=== PATIENT | male | born 1935 | race Two or more races ===

== ENCOUNTER → 2024-02-20 | Emergency (ER) | payer OTHER ==
[~2024-02-20] MED LIST: ATORVASTATIN 40 MG TAB ONE; FOLIC ACID 1 MG TABLET ONE; NA CHLORIDE 0.9% 1,000 ML ONE; TENECTEPLASE 50 MG/10 ML VIAL IV ONE
[2024-02-20 19:36] LABS: Absolute Basophils 0.1 K/uL (0-0.5); Absolute Eosinophils 0.2 K/uL (0-0.5); Absolute Lymphocytes (CBC) 1.9 K/uL (0.7-4.9); Absolute Monocytes 0.6 K/uL (0.1-1.3); Absolute Neutrophil 3.6 K/uL (1.8-8.0); Basophils % 0.8 % (0-1.3); Eosinophils % 3.9 % (0-4.4); Hematocrit 34.5 % (39.6-49.0); Hemoglobin 11.7 g/dL (13.6-17.9); Lymphocytes % 29.5 % (15.3-44.8); MCH 31.8 pg (27.0-35.0); MCV 93.8 fL (80-100); MPV 6.9 fL (7.6-11.3); Monocytes % 9.3 % (3.3-12.3); Neutrophils % 56.5 % (41.7-73.7); Platelets 245 thou/uL (152-406); RBC Red Blood Cell Count 3.68 M/uL (4.33-5.43); Red Cell Distribution Width 13.3 % (12.1-15.2)
[2024-02-20 19:41] LABS: PT Prothrombin Time 14.9 SECONDS (9.5-12.5); Protime INR 1.37
--- NOTE | 2024-02-20 19:43 | RAD REPORT ---
EXAM DESCRIPTION: CT - Neck Angio - 02/20/2024 7:30 pm CLINICAL HISTORY: PAIN COMPARISON: No comparisons TECHNIQUE: CT angiography of the neck vessels was performed with MIPs. All CT scans are performed using dose optimization technique as appropriate and may include automated exposure control or mA/KV adjustment according to patient size. FINDINGS: A left aortic arch is identified with normal three vessel configuration of the great vesse ls. No significant flow abnormality is seen of the common carotid bilaterally. No significant right-sided carotid stenosis. Mild soft plaque is seen left carotid bulb resulting in mild stenosis. Normal flow is seen within both vertebral arteries. IMPRESSION: Mild stenosis (estimated less than 50%) based on NASCET criteria noted left carotid bulb . NASCET criteria used. Mild 0-49% stenosis Moderate 50-69% stenosis Severe 70-99% stenosis
--- NOTE | 2024-02-20 19:50 | ER ---
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 The charge nurse has been notified. The jb4 patient has been moved to a treatment area. The patients blood glucose was checked prior to arriving to the hospital and was found to be hyperglycemic. 19:25 Chief complaint: Chief complaint: EMS states: Pt transferred with EMS from CT scan to [facility] the room. Report received from EMS. According to the patient's family members, patient's last known well time was 4:30 pm this afternoon. Pt's family witnessed the patient's left side of his face drooping and noted pt slurring his speech. Pt has notable left sided weakness with a slight drift as well as left sided drooping. Pt vital signs are stable. 19:25 Coronavirus screen: Vaccine status: Patient reports receiving the 2nd dose of the covid kd3 vaccine. Ebola Screen: No symptoms or risks identified at this time. Initial Sepsis Screen: Does the patient meet any 2 criteria? No. Patient's initial sepsis screen is negative. Does the patient have a suspected source of infection? No. Patient's initial sepsis screen is negative. Risk Assessment: Do you want to hurt yourself or someone else? Patient reports no desire to harm self or others. Onset of symptoms was February 20, 2024 at 16:30. 19:25 Method Of Arrival: EMS: [facility] 19:25 Acuity: MAXIMILIANO 2 3 Triage Assessment: 19:28 The onset of the patients symptoms was February 20, 2024 at 16:30. General: Appears in no jb4 apparent distress. comfortable, Behavior is calm, cooperative. Pain: Denies pain. Neuro: Level of Consciousness is awake, alert, obeys commands, Oriented to person, place, situation, Sugar Grinder are equal bilaterally Full function Weakness in left Speech is slurred, Facial droop on left, Pupils are PERRLA, Numbness in left side of head Reports numbness in left side of head. Cardiovascular: Patient's skin is warm and dry. Respiratory: Airway is patent Respiratory effort is even, unlabored, Respiratory pattern is regular, symmetrical. GI: No signs and/or symptoms were reported involving the gastrointestinal system. : No signs and/or symptoms were reported regarding the genitourinary system. Derm: Skin is intact, Skin is pink, warm \T\ dry. Musculoskeletal: Circulation, motion, and sensation intact. Range of motion: intact in all extremities. Stroke Activation: Symtpom onset >3 hours and < 6 hours Physician: Stroke Attending; Name: ; Notified At: ; Arrived At: Physician: Chief Stroke Resident; Name: ; Notified At: ; Arrived At: Physician: Stroke Resident; Name: ; Notified At: ; Arrived At: Physician: ED Attending; Name: Michael; Notified At: 19:07; Arrived At: Physician: ED Resident; Name: ; Notified At: ; Arrived At: Historical: - Allergies: 20:08 No Known Allergies; kd3 - Immunization history:: Adult Immunizations up to date. - Social history:: Smoking status: Patient denies any tobacco usage or history of. - Family history:: not pertinent. Screenin:43 [facility] ED Fall Risk Assessment (Adult) History of falling in the last 3 months, jb4 including since admission No falls in past 3 months (0 pts) Confusion or Disorientation No (0 pts) Intoxicated or Sedated No (0 pts) Impaired Gait No (0 pts) Mobility Assist Device Used No (0 pt) Altered Elimination No (0 pt) Score/Fall Risk Level 0 - 2 = Low Risk Oriented to surroundings, Maintained a safe environment. Abuse screen: Denies threats or abuse. Nutritional screening: No deficits noted. Tuberculosis screening: No symptoms or risk factors identified. Assessment: 19:28 Reassessment: Pt in room. jb4 19:43 General: Appears in no apparent distress. comfortable, Behavior is calm, cooperative, jb4 appropriate for age. Pain: Denies pain. Neuro: Level of Consciousness is awake, alert, obeys commands, Oriented to person, place, time, situation, Sugar Grinder are equal bilaterally Full function Weakness in left arm(s) Speech is slurred, Facial droop on left, Pupils are PERRLA, Numbness in left side of head Reports numbness in left side of head. Cardiovascular: Patient's skin is warm and dry. Respiratory: Airway is patent Respiratory effort is even, unlabored, Respiratory pattern is regular, symmetrical. GI: No signs and/or symptoms were reported involving the gastrointestinal system. : No signs and/or symptoms were reported regarding the genitourinary system. EENT: No signs and/or symptoms were reported regarding the EENT system. Derm: Skin is intact, Skin is pink, warm \T\ dry. Musculoskeletal: Circulation, motion, and sensation intact. Range of motion: intact in all extremities. 19:50 VAN Scoring: Arm Drift: Minor drift Visual Disturbance: No visual disturbance noted. jb4 [place] Swallow Protocol Brief Cognitive Screen What is your name? Normal, Where are you right now? Normal, What year is it? Normal. Oral Mechanism Examination Facial Symmetry: Normal, Motion: Normal, Lip Closure: Normal, Oral Mechanism Result: Normal. 3 oz Water Swallow Challenge: Pt able to drink all water without stopping, coughing, choking or throat clearing: Result: MILTON MD Notified: Yadiel Rodriguez MD. TNKase (Tenecteplase) Screening: Indications: Definite evidence of stroke, ischemic, embolic, or hypertensive: Yes. 20:23 Reassessment: Dr. Rodriguez At the bedside. jb4 21:00 Reassessment: Patient appears in no apparent distress at this time. Patient and/or jb4 family updated on plan of care and expected duration. Pain level reassessed. Patient is alert, oriented x 3, equal unlabored respirations, skin warm/dry/pink. Vital Signs: 19:30 Weight 68.49 kg (M); jb4 19:32 BP 123 / 86; Pulse 80; Resp 17; Temp 98.2(O); Pulse Ox 96% on R/A; kd3 19:45 BP 129 / 89; Pulse 84; Resp 18; Pulse Ox 96% on R/A; kd3 20:30 BP 135 / 83; Pulse 80; Resp 16; Pulse Ox 95% on R/A; jb4 [place] Coma Score: 20:02 Eye Response: spontaneous(4). Motor Response: obeys commands(6). Verbal Response: glory oriented(5). Total: 15. NIH Stroke Scale Scores: 20:00 NIHSS Score: 4 jb4 20:02 NIHSS Score: 5 glory 20:39 NIHSS Score: 6 kd3 ED Course: 19:15 Patient arrived in ED. glory 19:15 Yadiel Rodriguez MD is Attending Physician. glory 19:28 Initial lab(s) drawn, by me, sent to lab. kd3 19:29 Initiated transfer with Adam at [facility]. rv1 19:32 CT Head Angio In Process Unspecified. EDMS 19:32 CT Neck Angio In Process Unspecified. EDMS 19:33 Inserted saline lock: 20 gauge in left antecubital area, using aseptic technique. kd3 19:34 Maintain EMS IV. Dressing intact. Good blood return noted. Site clean \T\ dry. Gauge \T\ kd 3 site: 18 gauge right A/C. 19:36 EKG done, by ortho tech. kd3 19:43 Patient has correct armband on for positive identification. Bed in low position. Call jb4 light in reach. Side rails up X 1. Provided Education on: need for transfer. 19:46 CT Stroke Brain w/o Contrast In Process Unspecified. EDMS 19:[address] Lloyd to [facility] [address] [id number] Rm 3. rv1 20:08 Triage completed. kd3 20:08 Arm band placed on right wrist. kd3 20:17 Mario Ramirez, RN is Primary Nurse. jb4 20:20 XRAY Chest (1 view) In Process Unspecified. EDMS 20:50 Patient transferred, IV remains in place. jb4 20:50 No provider procedures requiring assistance completed. jb4 Administered Medications: 19:43 Drug: TNK FOR STROKE - Tenecteplase IV 0.25 mg/kg IV at per protocol once; MAX jb4 DOSE 25 mg, IVP over 5 seconds {Co-Signature: kd3 (Katy Griffiths RN).} Route: IV; Rate: per protocol; Site: right antecubital; 20:01 Drug: NS 0.9% IV 1000 ml IV at 1 bolus Per protocol; 1000 mL bolus Route: IV; Rate: 1 jb4 bolus; Site: right antecubital; 20:06 Drug: foLIC Acid PO 2 mg PO once Route: PO; jb4 20:07 Not Given (Other Intervention Used): folic acid1 mg IVPB once jb4 20:44 Drug: Atorvastatin PO 40 mg PO once Route: PO; jb4 20:44 Drug: NS 0.9% IV 1000 ml IV at 125 ml/hr continuous Route: IV; Rate: 125 ml/hr; Site: [facility] right antecubital; Medication: 21:00 VIS not applicable for this client. jb4 Point of Care Testing: Blood Glucose: 19:28 Blood Glucose: 133 mg/dL; 4 Ranges: Outcome: 19:49 ER care complete, transfer ordered by . glory 20:50 Transferred by ground EMS to [facility], Transfer form completed. jb4 X-rays sent w/ patient. 20:50 Condition: stable 20:50 Discharge instructions given to patient, family, Instructed on the need for transfer, Demonstrated understanding of instructions, 21:01 Patient left the ED. 4 NIH Stroke Scale - NIH Stroke Score Date: 02/20/2024 Time: 20:00 Total Score = 4 10. Dysarthria (speech clarity - read or repeat words) - 1(Mild to Moderate) 11. Extinction and Inattention (visual/tactile/auditory/spatial/personal) - 0(No abnormality) 1a. Level of Consciousness (LOC) - 0(Alert) 1b. Level of Consciousness (LOC) (Month \T\ Age) - 0(Both) 1c. LOC Commands (Open \T\ Closes Eyes/Form Builder Helper) - 0(Both) 2. Best Gaze (Lateral Gaze Paresis) - 0(Normal) 3. Visual Field Loss - 0(No visual loss) 4. Facial Palsy - 1(Minor Paralysis) 5a. Left Arm: Motor (10-second hold) - 1(Drift) 5b. Right Arm: Motor (10-second hold) - 0(No drift) 6a. Left Leg: Motor (5-second hold - always test supine) - 0(No drift) 6b. Right Leg: Motor (5-second hold - always test supine) - 0(No drift) 7. Limb Ataxia (finger/nose \T\ heel/harrington - test with eyes open) - 0(Absent) 8. Sensory Loss (pinprick arms/legs/face) - 1(Mild to moderate loss) 9. Best Language: Aphasia (description/naming/reading) - 0(No aphasia) Initials: jb4 NIH Stroke Scale - NIH Stroke Score Date: 02/20/2024 Time: 20:02 Total Score = 5 10. Dysarthria (speech clarity - read or repeat words) - 0(Normal) 11. Extinction and Inattention (visual/tactile/auditory/spatial/personal) - 0(No abnormality) 1a. Level of Consciousness (LOC) - 0(Alert) 1b. Level of Consciousness (LOC) (Month \T\ Age) - 0(Both) 1c. LOC Commands (Open \T\ Closes Eyes/Form Builder Helper) - 0(Both) 2. Best Gaze (Lateral Gaze Paresis) - 0(Normal) 3. Visual Field Loss - 0(No visual loss) 4. Facial Palsy - 2(Partial paralysis) 5a. Left Arm: Motor (10-second hold) - 1(Drift) 5b. Right Arm: Motor (10-second hold) - 0(No drift) 6a. Left Leg: Motor (5-second hold - always test supine) - 1(Drift) 6b. Right Leg: Motor (5-second hold - always test supine) - 0(No drift) 7. Limb Ataxia (finger/nose \T\ heel/harrington - test with eyes open) - 1(Present in one limb) 8. Sensory Loss (pinprick arms/legs/face) - 0(Normal) 9. Best Language: Aphasia (description/naming/reading) - 0(No aphasia) Initials: [facility] NIH Stroke Scale - NIH Stroke Score Date: 02/20/2024 Time: 20:39 Total Score = 6 10. Dysarthria (speech clarity - read or repeat words) - 1(Mild to Moderate) 11. Extinction and Inattention (visual/tactile/auditory/spatial/personal) - 0(No abnormality) 1a. Level of Consciousness (LOC) - 0(Alert) 1b. Level of Consciousness (LOC) (Month \T\ Age) - 0(Both) 1c. LOC Commands (Open \T\ Closes Eyes/Form Builder Helper) - 0(Both) 2. Best Gaze (Lateral Gaze Paresis) - 0(Normal) 3. Visual Field Loss - 0(No visual loss) 4. Facial Palsy - 1(Minor Paralysis) 5a. Left Arm: Motor (10-second hold) - 1(Drift) 5b. Right Arm: Motor (10-second hold) - 0(No drift) 6a. Left Leg: Motor (5-second hold - always test supine) - 1(Drift) 6b. Right Leg: Motor (5-second hold - always test supine) - 0(No drift) 7. Limb Ataxia (finger/nose \T\ heel/harrington - test with eyes open) - 1(Present in one limb) 8. Sensory Loss (pinprick arms/legs/face) - 1(Mild to moderate loss) 9. Best Language: Aphasia (description/naming/reading) - 0(No aphasia) Initials: kd3 Signatures: Dispatcher [employer] EDYadiel Mace MD MD cha Bryson, James RN RN jb4 Katy Griffiths, RN RN kd3 Esli Castañeda rv1 Katy Griffiths RN kd3 Corrections: (The following items were deleted from the chart) 20:37 19:50 NIHSS Score: 4 4 [facility] 20:40 19:40 NIHSS Score: 2 kd3 kd3 20:40 19:48 NIHSS Score: 4 kd3 kd3 20:40 19:52 NIHSS Score: 6 kd3 kd3 20:41 19:32 BP 123 / 86; Pulse 80bpm; Resp 17bpm; Pulse Ox 96% RA; kd3 kd3 21:01 19:43 No provider procedures requiring assistance completed. [facility] jb 21:01 19:43 Patient transferred, IV remains in place. jb4 jb4
--- NOTE | 2024-02-20 19:50 | EDPHYS ---
Physician Documentation [facility] Name: Xin Catherine Age: 88 yrs Sex: Male : 1935 Arrival Date: 02/20/2024 Time: 19:14 Bed 19 Private MD: ED Physician Yadiel Rodriguez HPI: 02/19 19:43 This 88 yrs old [place] Male presents to ER via Unassigned with complaints of LEFT glory SIDED WEAKNESS. 19:43 The patient's problem is reported as a facial droop, on left, weakness, in the left glory upper extremity, in the left lower extremity, in the left side of face. Onset: The symptoms/episode began/occurred at 16:30. Duration: This was a single incident, The episode is continuous. Context: the episode(s) was witnessed, by family. The symptoms are alleviated by nothing. The symptoms are aggravated by standing, walking. Associated signs and symptoms: The patient has no apparent associated signs or symptoms. Severity of symptoms: At their worst the symptoms were moderate in the emergency department the symptoms are unchanged. Patient's baseline: Neuro: alert and fully oriented. The patient has not experienced similar symptoms in the past. Historical: - Allergies: 20:08 No Known Allergies; kd3 - Immunization history:: Adult Immunizations up to date. - Social history:: Smoking status: Patient denies any tobacco usage or history of. - Family history:: not pertinent. ROS: 19:43 Constitutional: Negative for fever, chills, and weight loss, Eyes: Negative for injury, glory pain, redness, and discharge, ENT: Negative for injury, pain, and discharge, Neck: Negative for injury, pain, and swelling, Cardiovascular: Negative for chest pain, palpitations, and edema, Respiratory: Negative for shortness of breath, cough, wheezing, and pleuritic chest pain, Abdomen/GI: Negative for abdominal pain, nausea, vomiting, diarrhea, and constipation, Back: Negative for injury and pain, : Negative for injury, bleeding, discharge, and swelling, Skin: Negative for injury, rash, and discoloration, Psych: Negative for depression, anxiety, suicide ideation, homicidal ideation, and hallucinations, Allergy/Immunology: Negative for hives, rash, and allergies, Endocrine: Negative for neck swelling, polydipsia, polyuria, polyphagia, and marked weight changes, Hematologic/Lymphatic: Negative for swollen nodes, abnormal bleeding, and unusual bruising, 19:43 MS/extremity: Positive for WEAKNESS LEFT ARM, LEG AND LEFT LOWER FACE, Exam: 19:46 Radiologist reports: NEG PER RIYA holder 19:46 Constitutional: This is a well developed, well nourished patient who is awake, alert, and in no acute distress. Head/Face: Normocephalic, atraumatic. Eyes: Pupils equal round and reactive to light, extra-ocular motions intact. Lids and lashes normal. Conjunctiva and sclera are non-icteric and not injected. Cornea within normal limits. Periorbital areas with no swelling, redness, or edema. ENT: Nares patent. No nasal discharge, no septal abnormalities noted. Tympanic membranes are normal and external auditory canals are clear. Oropharynx with no redness, swelling, or masses, exudates, or evidence of obstruction, uvula midline. Mucous membranes moist. Neck: Trachea midline, no thyromegaly or masses palpated, and no cervical lymphadenopathy. Supple, full range of motion without nuchal rigidity, or vertebral point tenderness. No Meningismus. Chest/axilla: Normal chest wall appearance and motion. Nontender with no deformity. No lesions are appreciated. Cardiovascular: Regular rate and rhythm with a normal S1 and S2. No gallops, murmurs, or rubs. Normal PMI, no JVD. No pulse deficits. Respiratory: Lungs have equal breath sounds bilaterally, clear to auscultation and percussion. No rales, rhonchi or wheezes noted. No increased work of breathing, no retractions or nasal flaring. Abdomen/GI: Soft, non-tender, with normal bowel sounds. No distension or tympany. No guarding or rebound. No evidence of tenderness throughout. Back: No spinal tenderness. No costovertebral tenderness. Full range of motion. Male : Normal genitalia with no discharge or lesions. Skin: Warm, dry with normal turgor. Normal color with no rashes, no lesions, and no evidence of cellulitis. MS/ Extremity: Pulses equal, no cyanosis. Neurovascular intact. Full, normal range of motion. Psych: Awake, alert, with orientation to person, place and time. Behavior, mood, and affect are within normal limits. 19:46 ECG was reviewed by the Attending Physician. 19:46 Neuro: Orientation: is normal, appropriate for stated age, no acute changes, Mentation: is normal, appropriate for stated age, no acute changes, responsive to voice Memory: is normal, appropriate for stated age, no acute changes, Cranial nerves: facial droop noted on left, with forehead spared. Cerebellar function: is grossly normal, Motor: moves all fours, strength is 4/5 in the left arm and left leg, Sensation: is normal, no obvious gross deficits, appropriate no acute changes, Gait: not tested. Deep tendon reflexes are 2+ (normal) in the bilateral brachioradialis, bicep, tricep and patellar and Achilles tendons, Babinski testing is normal, seizure activity, is not displayed by the patient, Vital Signs: 19:30 Weight 68.49 kg (M); jb4 19:32 BP 123 / 86; Pulse 80; Resp 17; Temp 98.2(O); Pulse Ox 96% on R/A; kd3 19:45 BP 129 / 89; Pulse 84; Resp 18; Pulse Ox 96% on R/A; kd3 20:30 BP 135 / 83; Pulse 80; Resp 16; Pulse Ox 95% on R/A; jb4 NIH Stroke Scale Scores: 20:00 NIHSS Score: 4 jb4 20:02 NIHSS Score: 5 [facility] 20:39 NIHSS Score: 6 kd3 Yuri Coma Score: 20:02 Eye Response: spontaneous(4). Motor Response: obeys commands(6). Verbal Response: glory oriented(5). Total: 15. MDM: 19:15 Patient medically screened. [facility] 19:52 Differential diagnosis: CVA, TIA, metabolic disorder. Data reviewed: vital signs, [facility] nurses notes, EMS record, lab test result(s), EKG, radiologic studies, CT scan, plain films. Consideration of Admission/Observation Escalation of care including admission/observation considered. I considered the following discharge prescriptions or medication management in the emergency department Medications were administered in the Emergency Department. See JAN. Test considered but Not performed: MRI: MRI NOT AVALIABLE. 20:10 Independent interpretation of the following test(s) in the Emergency Department EKG: glory See my EKG interpretation above. 20:10 Discussion of test interpretation with radiology: I had a discussion with radiology [facility] regarding a test interpretation. DR RITTERDR DUNN. Historians other than the Patient: Spouse/Significant Other: SON , WELL INFORMED. Care significantly affected by the following chronic conditions: NEUROPATHY. Counseling: I had a detailed discussion with the patient and/or guardian regarding the historical points, exam findings, and any diagnostic results supporting the discharge/admit diagnosis, lab results, radiology results, the need to transfer to another facility, for higher level of care, [facility] does not immediately have the required specialist. 02/19 19:17 Order name: Basic Metabolic Panel; Complete Time: 20:26 [facility] 02/19 19:17 Order name: CBC with Diff; Complete Time: 19:40 [facility] 02/19 19:17 Order name: LFT's; Complete Time: 20:02/19 19:17 Order name: Magnesium; Complete Time: 20: [facility] 02/19 19:17 Order name: NT PRO-BNP; Complete Time: 20:26 [facility] 02/19 19:17 Order name: PT-INR; Complete Time: 20: [facility] 02/19 19:17 Order name: Troponin HS; Complete Time: 20:26 [facility] 02/19 19:17 Order name: Urinalysis w/ reflexes [facility] 02/19 19:40 Order name: Glucose, Ancillary Testing; Complete Time: 19:40 EDMS 02/19 19:45 Order name: Carbamazepine (tegretol); Complete Time: 20:26 rv1 02/19 19:17 Order name: XRAY Chest (1 view); Complete Time: 20:44 [facility] 02/19 19:17 Order name: CT Stroke Brain w/o Contrast; Complete Time: 20: [facility] 02/19 19:17 Order name: CT Head Angio; Complete Time: 20: [facility] 02/19 19:17 Order name: CT Neck Angio; Complete Time: 20:07 [facility] 02/19 19:17 Order name: EKG; Complete Time: 19:18 [facility] 02/19 19:17 Order name: Cardiac monitoring; Complete Time: 20:02/19 19:17 Order name: EKG - Nurse/Tech; Complete Time: 20: [facility] 02/19 19:17 Order name: IV Saline Lock; Complete Time: 20: [facility] 02/19 19:17 Order name: Labs collected and sent; Complete Time: 20:02/19 19:17 Order name: O2 Per Protocol; Complete Time: 20: glory 02/19 19:17 Order name: O2 Sat Monitoring; Complete Time: 20: glory EC:46 Rate is 86 beats/min. Rhythm is regular. QRS [place] is Normal. [place] interval is normal. QRS glory interval is normal. QT interval is normal. No Q waves. T waves are Normal. No ST changes noted. Clinical impression: NSR w/ Non-specific ST/T Changes and No evidence of ischemia. Interpreted by me. Reviewed by me. Administered Medications: 19:43 Drug: TNK FOR STROKE - Tenecteplase IV 0.25 mg/kg IV at per protocol once; MAX jb4 DOSE 25 mg, IVP over 5 seconds {Co-Signature: kd3 (Katy Griffiths RN).} Route: IV; Rate: per protocol; Site: right antecubital; 20:01 Drug: NS 0.9% IV 1000 ml IV at 1 bolus Per protocol; 1000 mL bolus Route: IV; Rate: 1 jb4 bolus; Site: right antecubital; 20:06 Drug: foLIC Acid PO 2 mg PO once Route: PO; jb4 20:07 Not Given (Other Intervention Used): folic acid1 mg IVPB once jb4 20:44 Drug: Atorvastatin PO 40 mg PO once Route: PO; jb4 20:44 Drug: NS 0.9% IV 1000 ml IV at 125 ml/hr continuous Route: IV; Rate: 125 ml/hr; Site: jb right antecubital; Point of Care Testing: Blood Glucose: 19:28 Blood Glucose: 133 mg/dL; jb4 Ranges: Critical Glucose Levels:Adult <50 mg/dl or >400 mg/dl <40 mg/dl or >180 mg/dl Disposition Summary: 02/20/24 19:49 Transfer Ordered Notes: Transfer Location: 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 Total time: 45 minutes NIH Stroke Scale - NIH Stroke Score Date: 02/20/2024 Time: 20:00 Total Score = 4 10. Dysarthria (speech clarity - read or repeat words) - 1(Mild to Moderate) 11. Extinction and Inattention (visual/tactile/auditory/spatial/personal) - 0(No abnormality) 1a. Level of Consciousness (LOC) - 0(Alert) 1b. Level of Consciousness (LOC) (Month \T\ Age) - 0(Both) 1c. LOC Commands (Open \T\ Closes Eyes/Foreign Exchange Student Coordinator) - 0(Both) 2. Best Gaze (Lateral Gaze Paresis) - 0(Normal) 3. Visual Field Loss - 0(No visual loss) 4. Facial Palsy - 1(Minor Paralysis) 5a. Left Arm: Motor (10-second hold) - 1(Drift) 5b. Right Arm: Motor (10-second hold) - 0(No drift) 6a. Left Leg: Motor (5-second hold - always test supine) - 0(No drift) 6b. Right Leg: Motor (5-second hold - always test supine) - 0(No drift) 7. Limb Ataxia (finger/nose \T\ heel/har[place] - test with eyes open) - 0(Absent) 8. Sensory Loss (pinprick arms/legs/face) - 1(Mild to moderate loss) 9. Best Language: Aphasia (description/naming/reading) - 0(No aphasia) Initials: jb4 NIH Stroke Scale - NIH Stroke Score Date: 02/20/2024 Time: 20:02 Total Score = 5 10. Dysarthria (speech clarity - read or repeat words) - 0(Normal) 11. Extinction and Inattention (visual/tactile/auditory/spatial/personal) - 0(No abnormality) 1a. Level of Consciousness (LOC) - 0(Alert) 1b. Level of Consciousness (LOC) (Month \T\ Age) - 0(Both) 1c. LOC Commands (Open \T\ Closes Eyes/Foreign Exchange Student Coordinator) - 0(Both) 2. Best Gaze (Lateral Gaze Paresis) - 0(Normal) 3. Visual Field Loss - 0(No visual loss) 4. Facial Palsy - 2(Partial paralysis) 5a. Left Arm: Motor (10-second hold) - 1(Drift) 5b. Right Arm: Motor (10-second hold) - 0(No drift) 6a. Left Leg: Motor (5-second hold - always test supine) - 1(Drift) 6b. Right Leg: Motor (5-second hold - always test supine) - 0(No drift) 7. Limb Ataxia (finger/nose \T\ heel/har[place] - test with eyes open) - 1(Present in one limb) 8. Sensory Loss (pinprick arms/legs/face) - 0(Normal) 9. Best Language: Aphasia (description/naming/reading) - 0(No aphasia) Initials: glory NIH Stroke Scale - NIH Stroke Score Date: 02/20/2024 Time: 20:39 Total Score = 6 10. Dysarthria (speech clarity - read or repeat words) - 1(Mild to Moderate) 11. Extinction and Inattention (visual/tactile/auditory/spatial/personal) - 0(No abnormality) 1a. Level of Consciousness (LOC) - 0(Alert) 1b. Level of Consciousness (LOC) (Month \T\ Age) - 0(Both) 1c. LOC Commands (Open \T\ Closes Eyes/Foreign Exchange Student Coordinator) - 0(Both) 2. Best Gaze (Lateral Gaze Paresis) - 0(Normal) 3. Visual Field Loss - 0(No visual loss) 4. Facial Palsy - 1(Minor Paralysis) 5a. Left Arm: Motor (10-second hold) - 1(Drift) 5b. Right Arm: Motor (10-second hold) - 0(No drift) 6a. Left Leg: Motor (5-second hold - always test supine) - 1(Drift) 6b. Right Leg: Motor (5-second hold - always test supine) - 0(No drift) 7. Limb Ataxia (finger/nose \T\ heel/har[place] - test with eyes open) - 1(Present in one limb) 8. Sensory Loss (pinprick arms/legs/face) - 1(Mild to moderate loss) 9. Best Language: Aphasia (description/naming/reading) - 0(No aphasia) Initials: kd3 Signatures: Dispatcher [employer] EDYadiel Mace MD MD cha Bryson, James RN RN jb4 Katy Griffiths RN RN kd3 Katy Griffiths RN kd3 Corrections: (The following items were deleted from the chart) 20:12 19:49 NICU SL , [facility] glory 20:44 20:12 NICU SL , [facility] glory 21:01 20:44 [facility] SL , [facility] jb4
--- NOTE | 2024-02-20 19:52 | RAD REPORT ---
EXAM DESCRIPTION: CT - Ct Stroke Brain Wo Cont - 02/20/2024 7:44 pm CLINICAL HISTORY: STROKE ALERT Headache, drowsiness COMPARISON: No comparisons TECHNIQUE: All CT scans are performed using dose optimization technique as appropriate and may inclu de automated exposure control or mA/KV adjustment according to patient size. FINDINGS: No intracranial hemorrhage, hydrocephalus or extra-axial fluid collection.Moderate general ized brain atrophy is present with mild periventricular and deep white matter chronic microvascular i schemic changes.No areas of brain edema or evidence of midline shift. The paranasal sinuses and mastoids are clear. The calvarium is intact. IMPRESSION: No acute intracranial abnormality. The findings were discussed with doctor Rodriguez in the ER on 02/20/2024 at 7:13 p.m. by telephone.
--- NOTE | 2024-02-20 19:53 | RAD REPORT ---
EXAM DESCRIPTION: CT - Head angio - 02/20/2024 7:45 pm CLINICAL HISTORY: TIA Headache, drowsiness COMPARISON: Ct Stroke Brain Wo Cont dated 02/20/2024 TECHNIQUE: CT angiography of the head was performed with MIPs. All CT scans are performed using dose optimization technique as appropriate and may include automated exposure control or mA/KV adjustment according to patient size. FINDINGS: No evidence of large vessel occlusion. No evidence of aneurysm is detected. No flow-limiti ng stenosis or vascular malformation identified. Antegrade flow is seen in the vertebral arteries. The vertebral arteries are codominant. The visualized dural venous sinuses are patent. IMPRESSION: No significant flow abnormality is detected.
[2024-02-20 19:56] LABS: ALT/SGPT 14 U/L (16-61); AST/SGOT 10 U/L (15-37); Albumin/Globulin Ratio 0.9 (1.1-1.8); Alkaline Phosphatase 49 U/L (45-117); Anion Gap 8.7 mEq/L (5.0-15.0); BUN Blood Urea Nitrogen 21 mg/dL (7-18); Bicarbonate 27 mEq/L (21-32); Bilirubin Total 0.2 mg/dL (0.2-1.0); Globulin 3.4 g/dL (2.3-3.5); Glomerular Filtration Rate 48 ml/min (=/>90); Glucose Level 134 mg/dL (74-106); Magnesium 1.9 mg/dL (1.6-2.4); NT PRO-BNP 58 pg/mL (<450); Potassium 3.7 mEq/L (3.5-5.1); Protein, Total 6.4 g/dL (6.4-8.2); Sodium Level 139 mEq/L (136-145); Troponin High Sensitivity 7.8 pg/mL (<58.9)
[2024-02-20 20:09] LABS: Bilirubin Direct < 0.1 mg/dL (0-0.2); Bilirubin Indirect, Calculated ND mg/dL (0.2-0.8)
--- NOTE | 2024-02-20 20:26 | RAD REPORT ---
EXAM DESCRIPTION: RAD - Chest Single View - 02/20/2024 8:19 pm CLINICAL HISTORY: COUGH Chest pain. COMPARISON: No comparisons FINDINGS: Portable technique limits examination quality. The lungs are grossly clear. The heart is normal in size. No displaced fractures. IMPRESSION: No acute intrathoracic process suspected.
[2024-02-20 21:34] VITALS: BP 135/83; TEMP 98.2; O2SAT 95
[2024-02-20 22:26] LABS: Urine Bilirubin NEGATIVE (Negative); Urine Blood Negative (Negative); Urine Clarity Clear (Clear); Urine Color Colorless (Yellow); Urine Glucose NEGATIVE (Negative); Urine Ketones NEGATIVE (Negative); Urine Microscopic Reflex YN NO UMIC; Urine Nitrite NEGATIVE (Negative); Urine Protein NEGATIVE (Negative); Urine Urobilinogen Normal (Normal); Urine pH 6.5 (5.0-7.0)
[2024-02-20 22:27] LABS: Specific Gravity > 1.030 (1.005-1.030)
--- NOTE | 2024-02-23 14:23 | EKG ---
Test Date: 2024-02-20 Test Time: 18:35:49 Billiard Table Repairer: [id number] MEASUREMENT RESULTS: Intervals: Rate: 86 NV: 176 QRSD: 86 QT: 390 QTc: 466 [place]: P: 42 NV: 176 QRS: -31 T: 61 INTERPRETIVE STATEMENTS: Normal sinus rhythm Left axis deviation Abnormal ECG No previous ECG available for comparison Electronically Signed On 02-23-24 14:15:44 CDT by Talha Arenas
== END ==
LOC: ER 19:14
DX: I63.9 Cerebral infarction, unspecified (principal); G81.94 Hemiplegia, unspecified affecting left nondominant side; R29.706 NIHSS score 6; I65.22 Occlusion and stenosis of left carotid artery; N19 Unspecified kidney failure
CPT/HCPCS: 92977; 93005; 85025; 80048; 36415; 83735; 80156; 85610; 82565; 82947; 80076; 81003; 84484; 83880; 70496; 70498; 70450; 71045; 96374; 99285; Q9967; J3101; J7030 ×2

== ENCOUNTER 2024-02-24 12:37 | Inpatient (IN) | payer OTHER ==
[2024-02-24] MEDS ORDERED: ACETAMINOPHEN 325 MG TABLET PO PRN (16:47)
[2024-02-24] MEDS: ENOXAPARIN 40 MG/0.4 ML SQ SCH (17:48)
[2024-02-24] MEDS ORDERED: APIXABAN 2.5 MG TABLET PO SCH (20:00)
[2024-02-24] MEDS: ALBUTEROL 2.5 MG/3 ML NEB SOL NEB SCH (20:12)
[2024-02-24] MEDS: IPRATROPIUM BROM 0.5MG/2.5ML NEB SCH (20:12)
[2024-02-24] MEDS: BUDESONIDE 0.5 MG/2 ML NEB NEB SCH (20:45)
[2024-02-24] MEDS ORDERED: BUDESONIDE 0.25 MG/2 ML NEB ONE (20:58)
[2024-02-24] MEDS: MELATONIN 3 MG TABLET PO SCH (21:00)
[2024-02-24] MEDS: DOCUSATE NA/SENNA CONC 1 TAB PO SCH (21:00)
[2024-02-25 04:06] LABS: Absolute Basophils 0.1 K/uL (0-0.5); Absolute Lymphocytes (CBC) 1.4 K/uL (0.7-4.9); Absolute Monocytes 1.4 K/uL (0.1-1.3); Absolute Neutrophil 16.3 K/uL (1.8-8.0); Basophils % 0.4 % (0-1.3); Eosinophils % 0.1 % (0-4.4); Hematocrit 38.8 % (39.6-49.0); Hemoglobin 12.9 g/dL (13.6-17.9); Lymphocytes % 7.2 % (15.3-44.8); MCH 30.9 pg (27.0-35.0); MCHC 33.2 g/dL (32.0-36.0); MCV 93.3 fL (80-100); MPV 7.5 fL (7.6-11.3); Monocytes % 7.3 % (3.3-12.3); Platelets 259 thou/uL (152-406); RBC Red Blood Cell Count 4.16 M/uL (4.33-5.43); Red Cell Distribution Width 13.4 % (12.1-15.2)
[2024-02-25 04:18] LABS: Albumin 3.2 g/dL (3.4-5.0); Prealbumin 17.2 mg/dL (20-40)
[2024-02-25 05:53] LABS: Specific Gravity 1.028 (1.005-1.030); Sqamous Epithelial None Seen /HPF (None Seen); Urine Bacteria <20 /HPF (<20); Urine Bilirubin NEGATIVE (Negative); Urine Blood 1+ (Negative); Urine Clarity Turbid (Clear); Urine Color Yellow (Yellow); Urine Culture Reflex Order REFLEXED; Urine Glucose NEGATIVE (Negative); Urine Ketones NEGATIVE (Negative); Urine Microscopic Reflex YN ORDER UMIC; Urine Mucus Slight /HPF (None Seen); Urine Nitrite NEGATIVE (Negative); Urine Protein 1+ (Negative); Urine Urobilinogen Normal (Normal); Urine WBC 20-50 /HPF (<5)
--- NOTE | 2024-02-25 06:32 | HP ---
Date of Admission: 02/24/2024 Time Of Service: 6:30 p.m. Chief Complaint: "I had a stroke and my left side is weak." History Of Present Illness: Mr. Catherine is an 88-year-old patient with dementia, peripheral neuropat hy, who was very active, able to walk at least 3 miles daily for exercise, who can cook, clean, and t gege care of his . The patient and his were visiting from [place] and while visiting family not iced more confusion with left-sided weakness, facial droop, and numbness onset on the February 19. He was seen at [facility] and his NIH Stroke Scale was 6. His CT scan was negative for any acute ischemic hemorrhagic findings and as a result him being within the window for TNKs, he did rec eive TNKs. CT angiogram of the head and neck showed no large vessel occlusion. There was less than 50% stenosis of left carotid bulb. Following TNKs, which is the intravenous thrombolysis, he was tra nsferred to [facility] for monitoring higher level of care. The patient was tr eated with atorvastatin for dyslipidemia, and carbamazepine for trigeminal neuralgia and had mild del irium while in ICU in [place]. Also found to have acute renal insufficiency, which did resolve after 2 days. He was treated with senna and MiraLAX for significant constipation and Flomax for benign pr ostatic hypertrophy. The patient's deficits consisted of dysarthria, dysphasia with left-sided arm, leg, and face weakness, and some confusion with agitation. It is also noted that he had difficulty w ith the ability to urinate and was diagnosed with urinary retention. Furthermore, he had an acute on chronic metabolic encephalopathy. His white blood cell count did elevate overnight from 8.3 to 13.6 on the . Chest x-ray revealed a pneumonia, likely aspiration, and he was treated with levofloxa chandler. As a result of his complex condition and deficits due to stroke, the patient is requiring signi ficant assistance with ordinary activities. He was evaluated by therapy service and found to be at a supervision level for bed mobility, contact guard for transfer, moderate assistance for ambulation 1 00 feet with a rolling walker and for donning and doffing socks and for his toileting and for his cog nitive functioning. As a result, he is determined to be an appropriate candidate for inpatient rehab ilitation where his medical issues may be managed and he received physical therapy at the same time. Past Medical History: As noted above including the prostate hypertrophy, pneumonia, constipation, ne uralgia, dyslipidemia, of course his recent stroke. Allergies: NO KNOWN DRUG ALLERGIES. Current Medications: Flomax 0.4 mg at night, Senokot-S 2 at bedtime, melatonin 6 mg at bedtime, levo floxacin 750 mg daily, Atrovent 0.5 mg nebulizer every 6 hours, Lovenox 40 mg subcutaneously daily, T egretol 200 mg daily, Pulmicort 0.5 mg twice daily, Lipitor 80 mg at bedtime, aspirin 81 mg daily, al buterol nebulizer 2.5 mg every 6 hours as needed, Tylenol 650 mg every 6 hours as needed. X-ray/imaging: Chest x-ray from 02/24/2024, showed hazy interstitial thickening without focal pneumo leonardo. There is an atypical infection may be considered. MRI of the brain without contrast on 01/2023 , showed right paramedian small acute infarct. There was involutional minimal chronic microvascular ischemic changes identified. Family History: Noncontributory. Social History: No alcohol, tobacco, or IV drug use. The patient is from [place]. Review of Systems: Aside from mentioned, some difficulty in swallowing, problems with weakness on the left side face, ar m, and legs, and coordination difficulties, mild disorientation, confusion. No other positive system s review aside from mild shortness of breath. Current Level Of Functioning: Setup assistance for eating; contact guard for oral hygiene; supervisi on for toileting; moderate assistance for showering; upper body dressing, contact guard assistance; m oderate assistance for lower body dressing; toileting, rolling from right to left, left to right cont act guard assistance; also for sliding in bed moderate assistance; toileting, moderate assistance; am bulating with moderate assistance without assistive device for 100 feet. Physical Examination: Vital Signs: Blood pressure 121/75, pulse up to 110, respiratory rate 16, temperature 99.3, oxygen s aturation 90%. General: Mr. Catherine is resting comfortably in no acute distress. HEENT: He is normocephalic, atraumatic. Sclerae are anicteric. Decreased breath sounds bilaterally . Abdomen: Soft, no significant edema, cyanosis or clubbing. NEUROLOGIC: Left-sided weakness upper and lower extremity around 4/5. Decreased light touch and tem perature also noted left side. Some incoordination on left side. Some difficulty with labial, lingu la, and guttural sounds. Laboratory Studies: White blood cell count 13.3, hemoglobin 13.9, hematocrit 41.2, platelets 255. S odium 139, potassium 3.9, glucose 99, BUN 19, creatinine 0.92, calcium 9.4, magnesium 1.8. Assessment: Mr. Catherine is an 88-year-old patient in the rehabilitation unit with impairment categor y of stroke. Impairment group code 01.1 left body involvement, right brain. Etiologic diagnosis, right paramedian pontine infarct. Comorbidities are prostate hypertrophy, constipation, debility, d ecreased physical functioning, decreased mobility, dementia, dysarthria, pneumonia, hypertension, lef t-sided weakness with metabolic encephalopathy and leukocytosis, right trigeminal neuralgia, renal in sufficiency. Plan: 1.He will have physical, occupational, and speech therapy for 3.5 hours, 5/7 days. 2.Continue with levofloxacin for pneumonia, continue Flomax for prostate hypertrophy, continue Senok ot-S for constipation, continue Tegretol for trigeminal neuralgia. He has Pulmicort, Atrovent and ip ratropium for his pneumonia and respiratory insufficiency. Lovenox for DVT prophylaxis. Tylenol for pain, aspirin for stroke risk reduction. Comorbidities That Are Impacting Rehabilitation: The pneumonia requiring antibiotics could produce d ifficulty with respiration and shortness of breath. He will have incentive spirometry, aggressive us e of vent. We will have interval chest x-ray to evaluate for clearing of pneumonia and continue anti biotics as appropriate. May also have sputum cultures if need be and blood cultures as well. We slime l follow with urine analysis and urine cultures to see if urine is showing any signs of infection giv en his urinary retention. Rehab Specific Plan: Mr. Catherine will have physical, occupational, and speech therapy for 3.5 hours, 5/7 days to improve his ability to transfer from bed to chair, to toilet, to shower, to be able to a mbulate with modified independence 250 feet, to propel a wheelchair 250 feet with modified independen ce, up and down 10 steps with modified independence, perform cognitive functioning with modified inde pendence. Mr. Catherine has a good understanding of the process of [facility] the [facility] and how he will benefit from physical, occupational, and speech therapy. If need be, additional help from the Infectious Disease Service and hospitalist service will be consulted. Given his compl ex medical condition and risk of further complications, rehabilitation cannot be safely or affectivel y performed at a lower level of facility such as [facility]dc. Barriers To Discharge: Currently, the pneumonia will have to be re-evaluated by interval x-ray and w e will determine how long he may need to be on antibiotics. The location of the stroke does put him at risk for significant worsening if there is hemorrhagic conversion and may require head CT scan to rule that out if his symptoms worsen. Length Of Stay: About 2 weeks. Disposition: Back home with family and potentially continuing therapy depending on how he does, may be outpatient. Prognosis: Good. Rehabilitation Specific Goals: 1.Become independent with upper and lower body dressing, toileting, showering, donning and doffing o f footwear. 2.Independently ambulate 250 feet with a rolling walker and without any assistive device. 3.Independently propel a wheelchair 250 feet. 4.Independently go up and down 10 steps with bilateral handrails. 5.Independently perform cognitive functioning. The above goals were reviewed with Mr. Catherine and he is in agreement. By signing this document, I acknowledge I performed a full physical examination on Mr. Catherine. Olga aguilar ater than 24 hours after his admission to the inpatient rehabilitation facility and determine that he is able to tolerate the above course of treatment at an intensive level for a reasonable period of t dari. A detailed individualized plan of care for him will be completed by hospital day 4 based on the preadmission screen, history and phy sical, and therapy evaluations. YAZAN/JIMMIE Voice ID: [id number]
[2024-02-25] MEDS: TAMSULOSIN 0.4 MG SR CAP PO SCH (08:33)
[2024-02-25] MEDS: carBAMazepine 200 MG TAB PO SCH (08:33)
[2024-02-25] MEDS: ATORVASTATIN 80 MG TAB PO SCH (08:33)
[2024-02-25] MEDS: ASPIRIN 81 MG CHEWABLE TABLET PO SCH (08:33)
[2024-02-25] MEDS: POLYETHYL GLY 3350 17 GM/DOSE PO SCH (08:34)
[2024-02-25] MEDS: levoFLOXacin 750 MG TAB PO SCH (08:34)
--- NOTE | 2024-02-25 08:56 | RAD REPORT ---
[facility] DES[facility] 6:06 am CLINICAL HISTORY: cough after feeding COMPARISON: Chest Single View dated 02/20/2024 TECHNIQUE: Portable AP view of the chest. FINDINGS: The lungs are clear apart from mild left basilar atelectasis. Under penetration somewhat l imits evaluation. . No pneumothorax or effusion. The cardiomediastinal contours are unremarkable. IMPRESSION: No acute cardiopulmonary process.
[2024-02-26 04:21] LABS: Absolute Basophils 0.1 K/uL (0-0.5); Absolute Eosinophils 0.2 K/uL (0-0.5); Absolute Lymphocytes (CBC) 1.6 K/uL (0.7-4.9); Absolute Monocytes 1.4 K/uL (0.1-1.3); Absolute Neutrophil 11.9 K/uL (1.8-8.0); Basophils % 0.3 % (0-1.3); Eosinophils % 1.5 % (0-4.4); Hematocrit 36.8 % (39.6-49.0); Hemoglobin 11.9 g/dL (13.6-17.9); Lymphocytes % 10.5 % (15.3-44.8); MCH 30.6 pg (27.0-35.0); MCHC 32.4 g/dL (32.0-36.0); MCV 94.5 fL (80-100); MPV 7.8 fL (7.6-11.3); Monocytes % 9.1 % (3.3-12.3); Neutrophils % 78.6 % (41.7-73.7); Platelets 253 thou/uL (152-406); RBC Red Blood Cell Count 3.89 M/uL (4.33-5.43); Red Cell Distribution Width 13.5 % (12.1-15.2)
--- NOTE | 2024-02-26 08:10 | RAD REPORT ---
EXAM DESCRIPTION: RAD - Chest Single View - 02/26/2024 5:21 am CLINICAL HISTORY: f/u choking episode Chest pain. COMPARISON: Chest Single View dated 02/25/2024; Chest Single View dated 02/20/2024 FINDINGS: Portable technique limits examination quality. Mild interstitial pulmonary edema is probably present. No focal infiltrate. The heart is mildly enlar ged in size. No displaced fractures. IMPRESSION: Mild CHF is possible.
--- NOTE | 2024-02-26 09:44 | RAD REPORT ---
EXAM DESCRIPTION: RAD - Barium Swallow Modified - 02/26/2024 9:25 am CLINICAL HISTORY: potential aspiration COMPARISON: No comparisons TECHNIQUE: The patient was given liquid, semi-solid and solid forms of barium. Lateral view fluorosc opic imaging was performed in conjunction with speech pathology service. FINDINGS: Laryngeal penetration cleared. Aspiration with cough with thin liquids. Delay in onset of swallow causing aspiration with thin liquids. Total fluoroscopy time: 2 minutes and 13 seconds
[2024-02-26] MEDS ORDERED: FLEET ENEMA ADULT PR PRN (14:17)
[2024-02-26] MEDS: MAGNESIUM HYDROXIDE 8% 30 ML PO PRN (14:51)
--- NOTE | 2024-02-26 23:21 | PN ---
Date of Progress Note: 02/26/2024 Time Of Service: 1:30 a.m. Subjective: Mr. Catherine is sitting in the chair in the room. His son and were at the bedside. He has no new complaints. He is doing better in terms of his stroke deficits, which affected his le ft side. In addition, his gait, coordination, balance nausea. Review of Systems: No fevers or chills. No ongoing or active nausea. No rash. No psychiatric issues. No gastrointest inal issues. He does have trigeminal neuralgias, but that is managed with Tegretol. Physical Examination: Vital Signs: Blood pressure 114/60, pulse 77, respiratory rate 18, temperature 97.5, oxygen saturati on 93%, weight 173 pounds, height 5 feet 8 inches, BMI 22.6. General: Mr. Catherine is sitting in a chair. HEENT: He is normocephalic, atraumatic. Sclerae are anicteric. Oropharynx pink and moist. Neck: Supple. Chest: Clear. Extremities: His left upper extremity and lower extremities, some incoordination. Laboratory Studies: He has improving white blood cell count, which yesterday was 19.2, now 15.2 with neutrophils decreased from 85 to 78.6; hemoglobin slightly low at 11.9; platelets 253. Sodium 136, potassium 4.0, chloride 104, carbon dioxide 27, BUN 23, creatinine 1.21, glucose 130. Lactic acid is normal at 1.2. Procalcitonin slightly elevated at 0.27. Prealbumin 17.2, albumin 3.2, magnesium 2. 0, calcium 9.1. Urinalysis shows 75 esterase, 5 to 10 red blood cells, 20 to 50 white blood cells, t otal protein 1+, turbidity high. X-ray/imaging: Chest x-ray done today and compared to yesterday identified mild CHF is possible, hea rt mildly enlarged, no displaced fractures, mild interstitial pulmonary edema. A modified barium swa llow was done due to the possibility of aspiration pneumonia. The study showed laryngeal penetration , which cleared aspiration with cough with thin liquids. There is delay in onset of swallowing causi ng aspiration of thin liquids. The speech pathologist recommended minced, moist diet with nectar thi ck liquids via cup, crushed medications consistency, and he has a mechanical soft diet. Progress Made With Physical And Occupational Therapy: With his bed mobility, xilnyl-jt-ihx transfers , treated with minimal assistance. Cdv-sl-clrul transfers with contact guard assistance. He ambulat ed 500 feet once, 250 feet twice, and 105 feet twice with contact guard assistance. He ascended and descended 10 steps with bilateral handrails with contact guard assistance. Mr. Catherine is making great progress so far with his physical, occupational, and speech therapies [facility]os [facility] day 3. Assessment And Plan: Mr. Catherine is an 88-year-old patient in the rehabilitation unit with a right p aramedian pontine infarct affecting his left body. He has some incoordination on the left side, mild weakness. He has dysphagia for thin liquids as noted. In addition, there is a metabolic encephalop athy with leukocytosis, which is improving. He is on antibiotics. There is right trigeminal neuralg ia, renal insufficiency. Plan: 1.He will continue with physical, occupational, and speech therapy for 3-1/2 hours, 5 of 7 days. 2.Aspirin 81 mg daily for stroke risk reduction, albuterol nebulizer for his mild CHF and pulmonary congestion. 3.Lipitor 80 mg at night for dyslipidemia. 4.He does have constipation. He has Dulcolax rectal suppository and Fleet Enema will be given as ne eded. 5.Tegretol 200 mg daily for trigeminal neuralgia. 6.Lovenox 40 mg subcutaneously daily for DVT prophylaxis. 7.Atrovent for his pulmonary interstitial fluid. 8.He is continuing Levaquin 750 mg daily for his potential pneumonia and urinary tract infection. 9.Milk of magnesia given for constipation. 10.Melatonin for insomnia. 11.Flomax for prostate hypertrophy. Comorbidities That Are Impacting Rehabilitation: His last bowel movement was about 4 or 5 days ago. He is again having rectal suppository Dulcolax and Fleet Enema as appropriate. Has milk of magnesia and Senokot-S a s well. YAZAN/BEREL Voice ID: [id number] Report ID: [id number]
--- NOTE | 2024-02-27 13:33 | P.RH.PN ---
Estimated Length of Stay: 17 Expected Discharge Date: 03/09/24 Discharge Disposition Plan: Home Family Support: Yes Detention Goal: Mobility, Transfers, Self Care Vital Signs: Last Vital Signs Temp 98.0 F 02/27/24 08:00 Pulse 72 02/27/24 08:00 Resp 16 02/27/24 08:00 BP 111/52 L 02/27/24 08:00 Pulse Ox 95 02/27/24 08:00 Laboratory: Laboratory Last Values WBC 15.20 thou/uL (4.3-10.9) H 02/26/24 03:39 RBC 3.89 M/uL (4.33-5.43) L 02/26/24 03:39 Hgb 11.9 g/dL (13.6-17.9) L 02/26/24 03:39 Hct 36.8 % (39.6-49.0) L 02/26/24 03:39 MCV 94.5 fL (80-100) 02/26/24 03:39 MCH 30.6 pg (27.0-35.0) 02/26/24 03:39 MCHC 32.4 g/dL (32.0-36.0) 02/26/24 03:39 RDW 13.5 % (12.1-15.2) 02/26/24 03:39 Plt Count 253 thou/uL (152-406) 02/26/24 03:39 MPV 7.8 fL (7.6-11.3) 02/26/24 03:39 Neutrophils % 78.6 % (41.7-73.7) H 02/26/24 03:39 Lymphocytes % 10.5 % (15.3-44.8) L 02/26/24 03:39 Monocytes % 9.1 % (3.3-12.3) 02/26/24 03:39 Eosinophils % 1.5 % (0-4.4) 02/26/24 03:39 Basophils % 0.3 % (0-1.3) 02/26/24 03:39 Absolute Neutrophils 11.9 K/uL (1.8-8.0) H 02/26/24 03:39 Absolute Lymphocytes 1.6 K/uL (0.7-4.9) 02/26/24 03:39 Absolute Monocytes 1.4 K/uL (0.1-1.3) H 02/26/24 03:39 Absolute Eosinophils 0.2 K/uL (0-0.5) 02/26/24 03:39 Absolute Basophils 0.1 K/uL (0-0.5) 02/26/24 03:39 Sodium 136 mEq/L (136-145) 02/25/24 03:43 Potassium 4.0 mEq/L (3.5-5.1) 02/25/24 03:43 Chloride 104 mEq/L (98-107) 02/25/24 03:43 Carbon Dioxide 27 mEq/L (21-32) 02/25/24 03:43 Anion Gap 9.0 mEq/L (5.0-15.0) 02/25/24 03:43 BUN 23 mg/dL (7-18) H 02/25/24 03:43 Creatinine 1.21 mg/dL (0.70-1.30) 02/25/24 03:43 Est GFR (CKD-EPI) 58 ml/min (=/>90) L 02/25/24 03:43 Glucose 130 mg/dL (74-106) H 02/25/24 03:43 Lactic Acid 1.2 mmol/L (0.4-2.0) 02/25/24 03:43 Calcium 9.1 mg/dL (8.5-10.1) 02/25/24 03:43 Magnesium 2.0 mg/dL (1.6-2.4) 02/25/24 03:43 Albumin 3.2 g/dL (3.4-5.0) L 02/25/24 03:43 Prealbumin 17.2 mg/dL (20-40) L 02/25/24 03:43 Procalcitonin 0.27 ng/mL (<0.050) H 02/25/24 03:43 Urine Color Yellow (Yellow) 02/25/24 05:30 Urine Clarity Turbid (Clear) H 02/25/24 05:30 Urine pH 6.0 (5.0-7.0) 02/25/24 05:30 Ur Specific Kellogg 1.028 (1.005-1.030) 02/25/24 05:30 Glucose (UA)(Auto) Negative (Negative) 02/25/24 05:30 Urine Ketones Negative (Negative) 02/25/24 05:30 Urine Blood 1+ (Negative) H 02/25/24 05:30 Urine Nitrite Negative (Negative) 02/25/24 05:30 Urine Bilirubin Negative (Negative) 02/25/24 05:30 Urine Urobilinogen Normal (Normal) 02/25/24 05:30 Ur Leukocyte Esterase 75 Krissy/uL (Negative) H 02/25/24 05:30 Urine RBC 5-10 /HPF (None Seen) H 02/25/24 05:30 Urine WBC 20-50 /HPF (<5) H 02/25/24 05:30 Ur Squamous Epith Cells None seen /HPF (None Seen) 02/25/24 05:30 U Non-Squamous Epi Cells <5 /HPF (None Seen) 02/25/24 05:30 Urine Bacteria <20 /HPF (<20) 02/25/24 05:30 Urine Mucus Slight /HPF (None Seen) 02/25/24 05:30 Urine Culture Reflexed Reflexed 02/25/24 05:30 Urine Total Protein 1+ (Negative) H 02/25/24 05:30 Weight: 173 lb 9.6 oz Physician Update: Labs reviewed and are stable. Met 3/5 short term goals and 4/5 longterm goals. Now min assist with ADLs. BIMS 6, improved dysarthria and moderate dysphagia. Doing necter thick liquids well. Improved to min assist for bed mobility. 500' with CGA using RW, 10 steps with CGA. Summary: Patient's care plan and parts counterman goals have been reviewed and revised as necessary. Please see the Rehabilitation Signature page for all necessary signatures.
[2024-02-27] MEDS ORDERED: ALBUTEROL 2.5 MG/3 ML NEB SOL NEB PRN (14:20)
[2024-02-27] MEDS: ENSURE ENLIVE 237 ML CAN PO SCH (20:00)
[2024-02-27] MEDS: IPRATROPIUM BROM 0.5MG/2.5ML NEB PRN (20:42)
[2024-02-28] MEDS: SIMETHICONE 80 MG CHEWABLE TAB PO SCH (15:55)
[2024-02-28] MEDS: BUDESONIDE 0.5 MG/2 ML NEB NEB PRN (20:40)
[2024-02-29 06:21] LABS: Absolute Eosinophils 0.5 K/uL (0-0.5); Absolute Lymphocytes (CBC) 1.6 K/uL (0.7-4.9); Absolute Monocytes 1.1 K/uL (0.1-1.3); Absolute Neutrophil 4.6 K/uL (1.8-8.0); Basophils % 0.6 % (0-1.3); Eosinophils % 5.9 % (0-4.4); Hematocrit 37.2 % (39.6-49.0); Hemoglobin 12.8 g/dL (13.6-17.9); Lymphocytes % 20.4 % (15.3-44.8); MCH 31.8 pg (27.0-35.0); MCHC 34.4 g/dL (32.0-36.0); MCV 92.2 fL (80-100); MPV 6.8 fL (7.6-11.3); Neutrophils % 59.1 % (41.7-73.7); Nucleated Red Blood Cells % 0.1 % (0-0); Platelets 317 thou/uL (152-406); RBC Red Blood Cell Count 4.03 M/uL (4.33-5.43); Red Cell Distribution Width 13.1 % (12.1-15.2)
[2024-02-29 06:23] LABS: Anion Gap 8.1 mEq/L (5.0-15.0); Potassium 4.1 mEq/L (3.5-5.1)
--- NOTE | 2024-03-01 14:47 | RAD REPORT ---
EXAM DESCRIPTION: RAD - Abdomen 1 View (KUB) - 03/01/2024 2:12 pm CLINICAL HISTORY: Abdomen pain FINDINGS: The bowel gas pattern is unremarkable. Moderate to large amount of stool present throughou t the colon No significant abnormal calcification is displayed
[2024-03-01] MEDS: BISACODYL 10 MG RECTAL SUPP PR PRN (15:39)
--- NOTE | 2024-03-02 00:50 | PN ---
Date of Progress Note: 03/01/2024 Time Of Service: 1:30 p.m. Subjective: Mr. Catherine is sitting in a chair in his room in between therapy sessions. His and son are at the bedside. Today, he reports feeling better, doing more activities, ambulating, going up and down a few steps and mobilizing his wheelchair. He, however, did have a slight small bowel mo vement and still have some abdominal pain. KUB study was done, which showed a dboaezbr-ad-grpgq amou nt of retained stool without an obstruction pattern. He will have Dulcolax suppository and Fleet Jenny ma as needed. Review of Systems: Again, some abdominal pain, mild nausea, some difficulty sleeping and difficulty with his mobilizatio n. Otherwise, he is recovering well, does say he is somewhat worried about the sensory loss and weak ness of the left lower extremity and upper extremity secondary to his right paramedian pontine ischem ic infarct. Physical Examination: Vital Signs: Blood pressure 125/71, pulse 74, respiratory rate 18, temperature 97.6, oxygen saturati on 92%. Weight 183 pounds, height 5 feet 8 inches. General: Mr. Catherine is resting in his chair. He is in no significant distress. HEENT: He appears normocephalic, atraumatic. Sclerae anicteric. Oropharynx pink and moist. Neck: Supple. Chest: Clear. Extremities: He has mild edema in the lower extremities. His left lower and upper extremity shows m ild weakness around 4+/5. Mild loss of sensation and mild incoordination as well. Laboratory Studies: White blood cell count now normal at 7.8, it was at highest 19.2 when he came in , likely aspiration pneumonia. He is improving with antibiotics. Hemoglobin 12.8, platelets 317. S odium 137, potassium 4.1, chloride 105, carbon dioxide 28, BUN 24, creatinine 1.09, glucose 101, calc ium 8.9. Procalcitonin decreased from 0.27 to 0.11. X-ray/imaging: As noted. The KUB shows rtdcimew-ej-cddzj amount of retained stool without obstructi on pattern. Medications: His medications have been reviewed and remain unchanged. He is taking nebulizers. He is completing his levofloxacin from 02/25/2024 to 03/02/2024 and again much improved white blood cell count, now normalized. He has simethicone for gas. Progress Made With Physical And Occupational Therapy: Today, he did multiple gtn-aj-vhlvg transfers and stand and pivot transfers with contact guard assistance. He ambulated 825 feet with contact guar d assistance using a rolling walker. Mobilized the wheelchair 170 feet with contact guard assistance . Completed stair management going up and down 15 steps with contact guard assistance. Did have destiny e difficulty moving his left upper extremity on handrails and to prevent falls. With occu pational therapy, bathing, independent. Independent with upper body dressing, supervision with lower body dressing. With speech therapy, used speech strategies to reduce the rate and over-articulation and increased loudness to be 100% intelligible at phrase level and 90% intelligible for multisyllabi c words. He was oriented to temporal and spatial concepts with 100% accuracy. He did have thin liqu id trials with a cup with no signs of aspiration, although he max cuing to control bolus s ize. The therapist noted he did joke and laugh at times. Mr. Catherine is making great progress with physical, occupational, and speech therapy, improving very well, improving his urinary tract infection as well. Assessment: Mr. Catherine is an 88-year-old patient with right paramedian pontine infarct from which h sunny is recovering very well. He has retained stool in a guwxnjok-ib-ianlk amount and will receive Dulc olax suppository and Fleet Enema as needed. Metabolic encephalopathy and leukocytosis improving. Tr igeminal neuralgia is controlled. Renal insufficiency improving. Plan: 1.Continue with physical, occupational, and speech therapy for 3-1/2 hours, 5 of 7 days. 2.He will continue all comorbid condition medications as noted including Tegretol for trigeminal juan ralgia, Lovenox for DVT prophylaxis, Milk of Magnesia, and the Fleet Enema with Dulcolax suppository for constipation, melatonin for insomnia, Flomax for prostate hypertrophy, Lipitor for dyslipidemia. Comorbidities That Are Impacting Rehabilitation: He will have a suppository and Fleet Enema as neede d given his retained stool. Otherwise, he is doing very well. LB/MODL Voice ID: [id number] Report ID: [id number]
[2024-03-02 04:38] LABS: Absolute Basophils 0.1 K/uL (0-0.5); Absolute Eosinophils 0.5 K/uL (0-0.5); Absolute Lymphocytes (CBC) 2.3 K/uL (0.7-4.9); Absolute Monocytes 1.3 K/uL (0.1-1.3); Absolute Neutrophil 6.7 K/uL (1.8-8.0); Basophils % 0.6 % (0-1.3); Eosinophils % 4.9 % (0-4.4); Hematocrit 35.5 % (39.6-49.0); Hemoglobin 12.3 g/dL (13.6-17.9); Lymphocytes % 21.3 % (15.3-44.8); MCH 31.8 pg (27.0-35.0); MCHC 34.7 g/dL (32.0-36.0); MCV 91.7 fL (80-100); MPV 6.7 fL (7.6-11.3); Monocytes % 11.8 % (3.3-12.3); Neutrophils % 61.4 % (41.7-73.7); Nucleated Red Blood Cells % 0.1 % (0-0); Platelets 340 thou/uL (152-406); RBC Red Blood Cell Count 3.87 M/uL (4.33-5.43); Red Cell Distribution Width 12.8 % (12.1-15.2)
[2024-03-02 04:52] LABS: Anion Gap 5.1 mEq/L (5.0-15.0); Magnesium 2.3 mg/dL (1.6-2.4); Potassium 4.1 mEq/L (3.5-5.1); Prealbumin 16.7 mg/dL (20-40)
[2024-03-02] MEDS ORDERED: SIMETHICONE 80 MG CHEWABLE TAB PO PRN (14:04)
[2024-03-02 17:03] VITALS: BMI 27.8
[2024-03-02] MEDS ORDERED: APIXABAN 2.5 MG TABLET PO SCH (20:00)
[2024-03-02] MEDS: ENOXAPARIN 40 MG/0.4 ML SQ SCH (21:05)
--- NOTE | 2024-03-02 21:21 | PN ---
Date of Progress Note: 03/02/2024 Time Of Service: 1:20 p.m. Subjective: Mr. Catherine is doing much better every day. He is improving his strength. His balance, he is feeling much better on his therapy and is looking forward to a trip back to [facility]. Objective And Review Of Systems: No fevers, chills, nausea, vomiting. No myalgias, arthralgias, cindy h, headache, weight change. He still has the left-sided incoordination in the lower and upper extrem ity and subtle weakness and numbness. Physical Examination: Vital Signs: Blood pressure 125/74, pulse 70, respiratory rate 18, temperature 97.6, oxygen saturati on 95% on room air. General: Mr. Catherine is sitting in a chair between therapy sessions. HEENT: He appears normocephalic, atraumatic. Sclerae anicteric. Oropharynx moist. Neck: Supple. Chest: Clear. Extremities: His stroke deficits include left upper and lower extremity numbness, weakness, incoordi nation. Laboratory Studies: White blood cell count 10.9, hemoglobin 12.3, platelets 340. Sodium 140, potass ium 4.1, chloride 109, carbon dioxide 30, BUN 24, creatinine 1.12, glucose 97, calcium 9.1, magnesium 2.3, prealbumin 16.7, albumin 3.0. X-ray/imaging: Yesterday, a KUB x-ray did show a large amount of retained stool and the patient did have another Dulcolax suppository. He will have fleets enema as needed. Medications: Have been reviewed and remain unchanged. Progress Made With Physical And Occupational Therapy Along With Speech Therapy: Today with physical therapy, he ambulated 250 feet twice with a rolling walker and once without an assistive device. Wit h occupational therapy, ambulated from the shower actually 250 feet with standby assistance. He was dependent with [id number] transfers. He was independent in terms of washing and drying all of hi s body parts. With speech, he was able to take 8 ounces of thin liquids via cup with no overt signs of aspiration. A safe strategy for swallowing was reviewed and the patient verbalized understanding. Diet was upgraded to thin liquids. Mr. Catherine is making great progress with physical and occupational therapy. Assessment: Mr. Catherine is an 88-year-old patient in the rehabilitation unit with right paramedian p ontine infarct and left upper and lower extremity incoordination, numbness, weakness. He does have s ome retained stool that is much improved. Trigeminal neuralgia well controlled. Leukocytosis improv ed. Renal insufficiency also improved. His dyslipidemia is managed by continuing Lipitor. Plan: 1.Continue with physical, occupational, and speech therapy for 3.5 hours, 5 of 7 days. 2.All of his medications are continued as noted and he is doing very well. Comorbidities That Are Impacting His Rehabilitation: His constipation is improving and he is thrivin g at this point and not limited. LB/MODL Voice ID: [id number] Report ID: [id number]
[2024-03-03 20:58] VITALS: O2SAT 91
[2024-03-04 06:48] VITALS: BP 110/69; TEMP 97.2
== END 2024-03-04 11:00 | disposition home or self-care (01) | DRG 56 ==
LOC: 5TH 16:00
PROVIDERS: ADMIT Psychiatry & Neurology Neurology with Special Qualifications in Child Neurology; ATTEND Psychiatry & Neurology Neurology with Special Qualifications in Child Neurology
DX: I69.354 Hemiplegia and hemiparesis following cerebral infarction affecting left non-dominant side (principal); G93.41 Metabolic encephalopathy; J18.9 Pneumonia, unspecified organism; I69.392 Facial weakness following cerebral infarction; F03.90 Unspecified dementia, unspecified severity, without behavioral disturbance, psychotic disturbance, mood disturbance, and anxiety; G62.9 Polyneuropathy, unspecified; K59.00 Constipation, unspecified; E78.5 Hyperlipidemia, unspecified; N40.0 Benign prostatic hyperplasia without lower urinary tract symptoms; I10 Essential (primary) hypertension; G50.0 Trigeminal neuralgia; N28.9 Disorder of kidney and ureter, unspecified; G47.00 Insomnia, unspecified
CPT/HCPCS: 36415; 71045; 74018; 74230; 80048; 81001; 82040; 83605; 83735; 84134; 84145; 85025; 87086; 87088; 92507; 92523; 92526; 92610; 92611; 94010; 97110; 97112; 97116; 97129; 97163; 97165; 97530; 97542; J1650; J7613; J7626; J7634; J7644